=== PATIENT | female | born 1985 | race Caucasian/White ===

== ENCOUNTER 2023-10-28 19:31 | Inpatient (IN) | payer BC ==
[~2023-10-28] VITALS: Ht 165.1 cm; Wt 45.4 kg
[2023-10-28] MEDS ORDERED: MIRT-121 PO (20:07)
[2023-10-28] MEDS ORDERED: SERT25TA PO (20:07)
[2023-10-28] MEDS ORDERED: QUET25TA PO (20:07)
[2023-10-28 21:04] LABS: BASOPHILS % (AUTO) 1.1 % (0.0-2.0); DIFFERENTIAL COMMENT 0; EOSINOPHILS % (AUTO) 0.1 % (0.0-7.0); HEMOGLOBIN 13.1 g/dL (10.9-14.3); LYMPHOCYTES # (AUTO) 0.9 K/uL (0.8-4.8); LYMPHOCYTES % (AUTO) 24.8 % (20.5-51.5); MEAN CORPUSCULAR HEMOGLOBIN 33.7 uug (24.7-32.8); MEAN CORPUSCULAR HGB CONC 35 g/dL (32.3-35.6); MEAN CORPUSCULAR VOLUME 95.4 fL (75.5-95.3); MONOCYTES # (AUTO) 0.3 K/uL (0.1-1.30); MONOCYTES % (AUTO) 7.3 % (0.0-11.0); NEUTROPHILS # (AUTO) 2.5 K/uL (1.8-8.9); NEUTROPHILS % (AUTO) 66.7 % (38.5-71.5); PLATELET COUNT (AUTO) 339 K/uL (179-408); RED BLOOD CELL COUNT(AUTO) 3.89 MIL/uL (3.63-4.92); RED CELL DISTRIBUTION WIDTH 19.2 % (12.3-17.7); WHITE BLOOD COUNT (AUTO) 3.8 K/uL (3.8-11.8)
[2023-10-28 21:09] LABS: *BILIRUBIN,URIN NEGATIVE (NEGATIVE); *BLOOD, URINE NEGATIVE (NEGATIVE); *CLARITY,URINE CLEAR (CLEAR); *COLOR,URINE Other (YELLOW); *KETONES,URINE NEGATIVE (NEGATIVE); *PROTEIN,URINE NEGATIVE (NEGATIVE); *UROBILINOGEN,URINE 0.2 E.U./dl (NORMAL); LEUKOCYTE ESTERASE ,URINE NEGATIVE (NEGATIVE); NITRITE, URINE NEGATIVE (NEGATIVE); PH,URINE 7.5 (5.0-8.0); UGLUCOSE NEGATIVE (NEGATIVE)
[2023-10-28 21:12] LABS: ALBUMIN 4.9 g/dL (3.4-5.0); BILIRUBIN,DIRECT 0.2 mg/dL (0.0-0.2); BILIRUBIN,TOTAL 0.6 mg/dL (0.2-1.0); CREATININE 0.7 mg/dL (0.6-1.3)
[2023-10-28 21:26] LABS: *URINE HCG, QUAL NEGATIVE (NEGATIVE)
[2023-10-28 21:32] LABS: POTASSIUM 1.8 mmol/L (3.5-5.1)
[2023-10-28] MEDS ORDERED: POTASSIUM BICARBONATE/CIT AC 25 MEQ TABLET.EFF PO ONE (22:30)
[2023-10-28] MEDS ORDERED: LIDOCAINE 2%-EPI 1:100,000 20 ML VIAL IJ ONE (22:30)
[2023-10-28] MEDS ORDERED: LORAZEPAM 2 MG/1 ML VIAL ONE (22:40)
[2023-10-28] MEDS ORDERED: IV NORMAL SALINE 500 ML BAG IV ONE (22:45)
[2023-10-28] MEDS ORDERED: LORAZEPAM 2 MG/1 ML VIAL IV ONE (22:45)
[2023-10-28] MEDS ORDERED: LIDOCAINE 2%-EPI 1:100,000 20 ML VIAL ONE (23:16)
[2023-10-28] MEDS ORDERED: IV SODIUM CHLORIDE 3% 500 ML IV ONE (23:30)
[2023-10-28] MEDS ORDERED: POTASSIUM CHLORIDE 300 ML ONE (23:56)
[2023-10-29] MEDS ORDERED: SODIUM CHLORIDE 3% IV ONE
[2023-10-29] MEDS: POTASSIUM CHLORIDE 50 ML IV SCH ×6 (00:04→06:30)
[2023-10-29] MEDS ORDERED: METOCLOPRAMIDE HCL 10 MG/2 ML VIAL IV ONE (00:45)
[2023-10-29] MEDS ORDERED: KETOROLAC TROMETHAMINE 15 MG INJ IVP ONE (00:45)
[2023-10-29] MEDS ORDERED: METOCLOPRAMIDE HCL 10 MG/2 ML VIAL ONE (00:46)
[2023-10-29] MEDS ORDERED: KETOROLAC TROMETHAMINE 15 MG INJ ONE (00:46)
[2023-10-29] MEDS ORDERED: MORPHINE SULFATE 4 MG/1 ML DISP.SYRIN ONE ×2 (01:17→09:39)
[2023-10-29] MEDS ORDERED: diphenhydrAMINE 50 MG/1 ML VIAL ONE (01:26)
[2023-10-29] MEDS ORDERED: MORPHINE SULFATE 4 MG/1 ML DISP.SYRIN IV ONE ×2 (01:30→09:30)
[2023-10-29] MEDS ORDERED: diphenhydrAMINE 50 MG/1 ML VIAL IV ONE (01:30)
[2023-10-29 01:44] LABS: CALCIUM 8.1 mg/dL (8.5-10.1); CREATININE 0.8 mg/dL (0.6-1.3)
[2023-10-29 01:49] LABS: ALBUMIN 4.2 g/dL (3.4-5.0); BILIRUBIN,TOTAL 0.5 mg/dL (0.2-1.0)
[2023-10-29] MEDS ORDERED: DESMOPRESSIN 4 MCG/1 ML VIAL SUBCUT ONE ×2 (02:15→04:30)
[2023-10-29] MEDS ORDERED: IV D5W 1000ML 1,000 ML IV ONE (02:15)
[2023-10-29] MEDS ORDERED: DESMOPRESSIN 4 MCG/1 ML VIAL ONE ×2 (02:22→04:30)
[2023-10-29 03:10] LABS: CREATININE 0.8 mg/dL (0.6-1.3)
[2023-10-29 03:13] LABS: POTASSIUM 2.2 mmol/L (3.5-5.1)
[2023-10-29 04:20] LABS: CREATININE 0.8 mg/dL (0.6-1.3)
[2023-10-29 04:24] LABS: POTASSIUM 2.2 mmol/L (3.5-5.1)
[2023-10-29 05:53] LABS: CREATININE 0.8 mg/dL (0.6-1.3)
[2023-10-29 05:58] LABS: POTASSIUM 2.3 mmol/L (3.5-5.1)
[2023-10-29] MEDS ORDERED: BACITRACIN ZINC OINT 15 GM TUBE ONE (06:22)
[2023-10-29] MEDS ORDERED: BACITRACIN ZINC OINT 15 GM TUBE TOP ONE (06:31)
[2023-10-29 08:34] LABS: CALCIUM 8.1 mg/dL (8.5-10.1); CREATININE 0.6 mg/dL (0.6-1.3)
[2023-10-29 09:24] LABS: *BILIRUBIN,URIN NEGATIVE (NEGATIVE); *BLOOD, URINE 2+ (NEGATIVE); *CLARITY,URINE CLEAR (CLEAR); *COLOR,URINE YELLOW (YELLOW); *KETONES,URINE NEGATIVE (NEGATIVE); *PROTEIN,URINE NEGATIVE (NEGATIVE); *UROBILINOGEN,URINE 0.2 E.U./dl (NORMAL); LEUKOCYTE ESTERASE ,URINE NEGATIVE (NEGATIVE); NITRITE, URINE NEGATIVE (NEGATIVE); UGLUCOSE NEGATIVE (NEGATIVE)
[2023-10-29] MEDS ORDERED: ONDANSETRON 4 MG/2 ML VIAL IV ONE (09:30)
[2023-10-29] MEDS ORDERED: ONDANSETRON 4 MG/2 ML VIAL ONE (09:39)
[2023-10-29 09:40] LABS: POTASSIUM 2.5 mmol/L (3.5-5.1)
[2023-10-29 10:04] LABS: BASOPHILS # (AUTO) 0.1 K/UL (0.0-0.2); EOSINOPHILS % (AUTO) 0.3 % (0.0-7.0); HEMATOCRIT 33.4 % (31.2-41.9); HEMOGLOBIN 11.8 g/dL (10.9-14.3); LYMPHOCYTES # (AUTO) 0.9 K/uL (0.8-4.8); LYMPHOCYTES % (AUTO) 31.4 % (20.5-51.5); MEAN CORPUSCULAR HEMOGLOBIN 33.8 uug (24.7-32.8); MEAN CORPUSCULAR HGB CONC 35 g/dL (32.3-35.6); MEAN CORPUSCULAR VOLUME 95.7 fL (75.5-95.3); MONOCYTES # (AUTO) 0.3 K/uL (0.1-1.30); MONOCYTES % (AUTO) 10.8 % (0.0-11.0); NEUTROPHILS # (AUTO) 1.5 K/uL (1.8-8.9); NEUTROPHILS % (AUTO) 55.5 % (38.5-71.5); PLATELET COUNT (AUTO) 300 K/uL (179-408); RED BLOOD CELL COUNT(AUTO) 3.49 MIL/uL (3.63-4.92); RED CELL DISTRIBUTION WIDTH 18.8 % (12.3-17.7); WHITE BLOOD COUNT (AUTO) 2.7 K/uL (3.8-11.8)
[2023-10-29 10:07] LABS: DIFFERENTIAL COMMENT 1
[2023-10-29 10:11] LABS: CALCIUM 8.3 mg/dL (8.5-10.1); CREATININE 0.6 mg/dL (0.6-1.3)
[2023-10-29 10:47] LABS: POTASSIUM 2.3 mmol/L (3.5-5.1)
[2023-10-29] MEDS ORDERED: IV 0.9% SODIUM CHLORID+ 20 KCL 1,000 ML IV ONE (12:15)
[2023-10-29 13:44] VITALS: BP 122/71; TEMP 98.2; O2SAT 98
[2023-10-29 15:33] LABS: BAND % (MANUAL) 4 % (0-10); LYMPHOCYTES % (MANUAL) 35 % (20-40); MONOCYTES % (MANUAL) 5 % (2-10)
[2023-10-29 15:34] LABS: NEUTROPHILS % (MANUAL) 56 % (42-75); PLATELET ESTIMATE ADEQUATE
[2023-10-29 16:15] LABS: BACTERIA,URINE FEW /HPF (NONE SEEN); RBC,URINE 20-50 /HPF (0-3); SQUAMOUS EPITHELIAL CELL,UR FEW /HPF (NONE SEEN); WBC,URINE 0-3 /HPF (0-3)
[2023-10-29] MEDS ORDERED: POTASSIUM CHLORIDE 20 MEQ in IV D5/ 0.9% NACL 1,000 ML IV PRN (17:30)
[2023-10-29] MEDS ORDERED: ONDANSETRON 4 MG/2 ML VIAL IV PRN (17:30)
[2023-10-29] MEDS ORDERED: LORAZEPAM 0.5 MG TABLET PO PRN (17:30)
[2023-10-29] MEDS ORDERED: TEMAZEPAM 15 MG CAPSULE PO PRN (17:30)
[2023-10-29] MEDS ORDERED: ACETAMINOPHEN 325 MG TABLET PO PRN (17:30)
[2023-10-29] MEDS ORDERED: QUETIAPINE FUMARATE 25 MG TABLET PO PRN (17:45)
[2023-10-30] MEDS ORDERED: PANTOPRAZOLE SODIUM 40 MG TABLET.DR PO SCH (07:00)
== END 2023-10-29 13:40 | disposition left against medical advice (07) | DRG 558 ==
LOC: ER 19:36 → TRANSITION 10-29 12:59
PROVIDERS: ADMIT Internal Medicine; ATTEND Internal Medicine
PROC: 06HY33Z Insertion of Infusion Device into Lower Vein, Percutaneous Approach (ICD-10-PCS; principal; 2023-10-29)
DX: M62.82 Rhabdomyolysis (principal); E87.1 Hypo-osmolality and hyponatremia; F50.2 Bulimia nervosa; Z68.1 Body mass index [BMI] 19.9 or less, adult; M84.48XA Pathological fracture, other site, initial encounter for fracture; E87.6 Hypokalemia; R94.31 Abnormal electrocardiogram [ECG] [EKG]; Z53.29 Procedure and treatment not carried out because of patient's decision for other reasons; G44.85 Primary stabbing headache; T50.1X5A Adverse effect of loop [high-ceiling] diuretics, initial encounter; Y92.89 Other specified places as the place of occurrence of the external cause; F99 Mental disorder, not otherwise specified
CPT/HCPCS: 36415; 70030-TC; 71045; 83605; 83690; 83735; 84703; 85025; 93005; A4606; A4663; G0378; J1200; J1885; J2060; J2270; J2405; J2597; J2765; J3480; J7040; J7042; J7060